=== PATIENT | female | born 1970 | race American Indian/Alaskan Native ===

== ENCOUNTER 2021-01-22 14:29 | Outpatient (CLI) | payer BC ==
--- NOTE | 2021-01-22 17:32 | Ultrasound Report ---
LEFT DIGITAL DIAGNOSTIC MAMMOGRAM WITH CAD , 01/22/2021 LEFT COMPLETE BREAST ULTRASOUND CLINICAL INFORMATION / INDICATION: This is a short-term follow-up evaluation after benign left breast biopsy at the 10:00 position with results of fibroadenoma. The patient has a personal history of rig ht breast cancer treated with lumpectomy. She reports no new breast symptoms on today's evaluation. TECHNIQUE: Digital left mammographic imaging was performed. Limited ultrasound was performed. This ex amination was interpreted with the benefit of Computer-Aided Detection (CAD) analysis. COMPARISON: Left mammogram, 04/18/2019 and 04/01/2018. Left breast ultrasound, 05/15/2020 FINDINGS: Breast Density: The breasts are heterogeneously dense, which may obscure small masses. MAMMOGRAPHIC FINDINGS: The circumscribed 1.2 cm nodular density at the 10:00 position posterior depth has not significantly changed and has an associated biopsy clip. ULTRASOUND FINDINGS: Complete sonographic evaluation of all 4 quadrants and retroareolar region was p erformed. Sonographic evaluation of the left breast at the 10:00 position 9 cm from the nipple demo nstrates continued stability of the circumscribed oval wider than tall solid mass. It measures 1.2 x 0.7 cm and has not significantly changed since the previous study. Several additional small cysts and fibrocystic change are noted throughout the left breast. There is no evidence of new suspicious afua d mass or shadowing. IMPRESSION: 1. Stable appearance of left breast mass at the 10:00 position as described. This is been previously biopsied with results of fibroadenoma. Unless otherwise clinically indicated, the patient may return to routine screening mammography. Follow up recommendation: Back to schedule. BI-RADS Category 2: Benign. A "normal" or negative report should not discourage follow up or biopsy of a clinically significant f inding. A written summary of these findings will be mailed to the patient. The patient will be entered into a mammography reporting system which will generate a reminder letter for the patient's next appointmen t at the appropriate interval. According to the [employer], yearly mammograms are recommended starting at age 40 and continuing as long as a woman is in good health. Breast MRI is recommended for women with an mirta roximately 20-25% or greater lifetime risk of breast cancer, including women with a strong family his tory of breast or ovarian cancer and women who have been treated for Hodgkin's disease. Signer Name: Miryam Villarreal MD Signed: 01/22/2021 5:27 PM Workstation Name: [id number]
== END 2021-01-22 14:30 | disposition home or self-care (01) ==
LOC: SPVWC 14:29
PROVIDERS: ATTEND Surgery
DX: N60.02 Solitary cyst of left breast (principal); N60.22 Fibroadenosis of left breast; N63.22 Unspecified lump in the left breast, upper inner quadrant

== ENCOUNTER 2021-04-22 14:38 | Outpatient (CLI) | payer BC ==
--- NOTE | 2021-04-22 16:07 | Mammography Report ---
BILATERAL DIGITAL SCREENING MAMMOGRAM WITH CAD HISTORY: Screening mammogram, history of multiple bilateral breast biopsies. TECHNIQUE: Routine digital mammographic imaging performed. This examination was interpreted with anil cabello benefit of Computer-aided Detection analysis. COMPARISON: 04/19/2020, 04/18/2019, 04/01/2018. FINDINGS: Breast Density: scattered fibroglandular appearance of the breast tissue. Digital CC and MLO views demonstrate no mammographic evidence of malignancy. Stable left 10:00 breas t mass with associated biopsy marker. There is a calcified mass in the right upper outer breast which is also stable. Multiple biopsy markers within both breasts. IMPRESSION: No mammographic evidence of malignancy. If the clinical examination remains stable, recommend bilate ral mammogram in approximately one year. BIRADS 2: Benign Finding(s). FURTHER INFORMATION: According to the [employer], yearly mammograms are recommend ed starting at age 40 and continuing as long as a woman is in good health. Clinical Breast Exams shou ld be part of a periodic health exam-about every 3 years for women in their 20s and 30s and every yea r for women 40 and over. Breast self exam is an option for women starting in their 20s. Any breast ch lori noted on a breast self exam should be reported promptly to the patient's healthcare provider. Br east MRI is recommended for women with an approximately 20-25% or greater lifetime risk of breast can cer, including women with a strong family history of breast or ovarian cancer and women who have been treated for Hodgkin's disease. A negative Mammography report should not discourage follow up or biopsy of a clinically significant f inding and/or abnormality. Dense breast tissue may obscure small neoplasms. The patient will be entered into a reminder system with a target due date for the next screening mamm ogram. Signer Name: Fernando Au MD Signed: 04/22/2021 4:02 PM Workstation Name: [id number]
== END 2021-04-22 14:39 | disposition home or self-care (01) ==
LOC: SPVWC 14:38
PROVIDERS: ATTEND Surgery
DX: Z12.31 Encounter for screening mammogram for malignant neoplasm of breast (principal)
CPT/HCPCS: 77067